=== PATIENT | male | born 1960 | race Caucasian/White ===

== ENCOUNTER 2020-08-04 14:17 | Inpatient (IN) | payer BC ==
[2020-08-04 14:57] VITALS: BMI 25.9
[2020-08-04] MEDS ORDERED: chlordiazePOXIDE HCL 25 MG CAPSULE PO PRN (16:40)
[2020-08-04] MEDS ORDERED: NICOTINE POLACRILEX 2 MG GUM BUC PRN (16:41)
[2020-08-04] MEDS ORDERED: hydrOXYzine PAMOATE 25 MG CAPSULE (FP) PO PRN (16:41)
[2020-08-04] MEDS ORDERED: IBUPROFEN 400 MG TABLET (FP) PO PRN (16:41)
[2020-08-04] MEDS ORDERED: MAGNESIUM HYDROX 2400MG/30ML ORAL SUSPENSION 30 ML CUP PO PRN (16:41)
[2020-08-04] MEDS ORDERED: MAG HYDROX/AL HYDROX/SIMETH 30 ML UNIT-DOSE CUP PO PRN (16:41)
[2020-08-04] MEDS ORDERED: ACETAMINOPHEN 325 MG TABLET (FP) PO PRN ×2 (16:41)
[2020-08-04] MEDS ORDERED: MENTHOL/PHENOL 1 EACH UD MM PRN (16:41)
[2020-08-04] MEDS ORDERED: MAGNESIUM CITRATE 300 ML BOTTLE PO PRN (16:41)
[2020-08-04] MEDS ORDERED: ONDANSETRON *ODT* 4 MG TABLET SL PRN (16:41)
[2020-08-04] MEDS: chlordiazePOXIDE HCL 25 MG CAPSULE PO SCH (16:46)
[2020-08-05] MEDS: THIAMINE HCL 100 MG TABLET (FP) PO SCH ×2 (00:42→22:47)
[2020-08-05] MEDS: MELATONIN 5 MG TABLETS PO SCH ×2 (00:43→22:49)
[2020-08-05] MEDS: chlordiazePOXIDE HCL 25 MG CAPSULE PO SCH ×5 (00:46→22:47)
[2020-08-05] MEDS: PRENATAL VITAMINS W/ FOLIC ACID TABLET (FP) PO SCH (10:34)
[2020-08-05 12:55] LABS: HEMATOCRIT 37.2 % (35.4-49); HEMOGLOBIN 12.6 GM/dL (11.7-16.9); MCHC 33.9 g/dl (32.0-35.9); MEAN CELL VOLUME 100.4 fl (80-96); MEAN PLT VOLUME 7.3 fl (7.5-11.1); PLATELET COUNT 218 K/MM3 (134-434); RDW 14.2 % (11.9-15.9); WHITE BLOOD COUNT 5.8 K/mm3 (4.0-10.0)
[2020-08-05 13:11] LABS: CALCIUM 8.7 mg/dL (8.5-10.1)
[2020-08-05 13:12] LABS: ALBUMIN 3.2 g/dl (3.4-5.0); BLOOD UREA NITROGEN 8.3 mg/dL (7-18)
[2020-08-05 13:15] LABS: CREATININE 0.5 mg/dL (0.55-1.3)
[2020-08-05 13:17] LABS: TOT PROT 6.2 g/dl (6.4-8.2)
[2020-08-05 13:18] LABS: BILIRUBIN,TOTAL 0.8 mg/dL (0.2-1)
[2020-08-05] MEDS: BISMUTH SUBSALICYLATE 524 MG/30 ML PO PRN (14:51)
[2020-08-06] MEDS: chlordiazePOXIDE HCL 25 MG CAPSULE PO SCH ×4 (05:28→22:20)
[2020-08-06 10:05] LABS: INR 1.03 (0.83-1.09); PROTHROMBIN TIME (PATIENT) 12.5 SEC (9.7-13.0)
[2020-08-06 10:16] LABS: BLOOD UREA NITROGEN 9.8 mg/dL (7-18); CALCIUM 8.9 mg/dL (8.5-10.1)
[2020-08-06 10:18] LABS: CREATININE 0.5 mg/dL (0.55-1.3)
[2020-08-06 10:19] LABS: BILIRUBIN,TOTAL 0.6 mg/dL (0.2-1)
[2020-08-06] MEDS: PRENATAL VITAMINS W/ FOLIC ACID TABLET (FP) PO SCH (10:52)
[2020-08-06] MEDS: THIAMINE HCL 100 MG TABLET (FP) PO SCH (22:20)
[2020-08-06] MEDS: MELATONIN 5 MG TABLETS PO SCH (22:21)
[2020-08-07] MEDS ORDERED: chlordiazePOXIDE HCL 10 MG CAPSULE PO PRN
[2020-08-07] MEDS: chlordiazePOXIDE HCL 10 MG CAPSULE PO SCH ×4 (05:47→22:56)
[2020-08-07] MEDS ORDERED: COVID-19 VAC,AD26(JANSSEN)/PF 0.5 ML IM ONE (09:00)
[2020-08-07 10:07] LABS: SARS-CoV-2 NAA Not Detected (Not Detected)
[2020-08-07] MEDS: PRENATAL VITAMINS W/ FOLIC ACID TABLET (FP) PO SCH (11:14)
[2020-08-07] MEDS: THIAMINE HCL 100 MG TABLET (FP) PO SCH (22:56)
[2020-08-07] MEDS: MELATONIN 5 MG TABLETS PO SCH (22:56)
[2020-08-08] MEDS: chlordiazePOXIDE HCL 10 MG CAPSULE PO SCH ×2 (06:34→18:14)
[2020-08-08] MEDS: PRENATAL VITAMINS W/ FOLIC ACID TABLET (FP) PO SCH (10:44)
[2020-08-08] MEDS: BISMUTH SUBSALICYLATE 524 MG/30 ML PO PRN (14:27)
[2020-08-08] MEDS: THIAMINE HCL 100 MG TABLET (FP) PO SCH (22:43)
[2020-08-08] MEDS: MELATONIN 5 MG TABLETS PO SCH (22:43)
[2020-08-09] MEDS ORDERED: chlordiazePOXIDE HCL 10 MG CAPSULE PO ONE (05:00)
[2020-08-09 09:10] VITALS: BP 126/80; PULSE 85; TEMP 98.1
== END 2020-08-09 09:39 | disposition home or self-care (01) | DRG 775 ==
LOC: YASAS 14:17 → Y6N 23:51
PROVIDERS: ADMIT Allergy & Immunology; ATTEND Allergy & Immunology
PROC: HZ2ZZZZ Detoxification Services for Substance Abuse Treatment (ICD-10-PCS; principal; 2020-08-04)
DX: F10.230 Alcohol dependence with withdrawal, uncomplicated (principal); F17.210 Nicotine dependence, cigarettes, uncomplicated; F19.24 Other psychoactive substance dependence with psychoactive substance-induced mood disorder; S62.607A Fracture of unspecified phalanx of left little finger, initial encounter for closed fracture; W22.8XXA Striking against or struck by other objects, initial encounter; Y93.89 Activity, other specified; Y92.89 Other specified places as the place of occurrence of the external cause; Y99.8 Other external cause status
CPT/HCPCS: 0031A; 36415; 80053; 85027; 85610; 86780; 91303; C9803; U0003; U0005

== ENCOUNTER 2020-08-04 18:01 | Emergency (ER) | payer BC ==
[2020-08-04 18:22] VITALS: TEMP 98.4; BMI 25.9
[2020-08-04] MEDS ORDERED: chlordiazePOXIDE HCL 25 MG CAPSULE PO ONE (18:39)
[2020-08-04] MEDS ORDERED: chlordiazePOXIDE HCL 25 MG CAPSULE ONE (19:17)
[2020-08-04] MEDS ORDERED: ACETAMINOPHEN 325 MG TABLET (FP) PO ONE (19:20)
[2020-08-04] MEDS ORDERED: ACETAMINOPHEN 325 MG TABLET (FP) ONE (19:21)
[2020-08-04] MEDS ORDERED: VANCOMYCIN 1 GRAM (PRE-DOCKED) 1,000 MG/250 ML BAG IVPB ONE (19:31)
[2020-08-04 21:36] VITALS: BP 129/82; PULSE 84
== END 2020-08-04 21:35 | disposition home or self-care (01) ==
LOC: JER 18:01
DX: F10.129 Alcohol abuse with intoxication, unspecified (principal); S62.647A Nondisplaced fracture of proximal phalanx of left little finger, initial encounter for closed fracture
CPT/HCPCS: 73130-TC-LT-FY; 99283-25